=== PATIENT | female | born 1960 | race Caucasian/White ===

== ENCOUNTER → 2021-06-14 16:10 | Outpatient (CLI) | payer OTHER, SELFPAY ==
--- NOTE | 2021-06-14 16:45 | MRI_ITS ---
HISTORY: LUMBAR DISC MYELOPATHY. TECHNIQUE: Multiplanar and multisequence MR images of the lumbar spine. IV Contrast dosage and agent: None. # of images incl. paperwork: 120. COMPARISON: None. FINDINGS: VERTEBRAE: Vertebral body heights maintained. Degenerative bone marrow endplate changes at L4-5 and L5-S1. ALIGNMENT: No significant anterior or posterior subluxation. CONUS: Normal morphology and position at L1. SOFT TISSUES: No paraspinal fluid collection. INTERVERTEBRAL DISCS: Multilevel degenerative changes with posterior disc bulge osteophyte complexes and facet arthropathy. T12-L1, L1-2, L2-3, L3-4: No significant central canal stenosis or foraminal narrowing. L4-5: 9 x 12 mm left paracentral disc extrusion with superior migration extending into the left lateral recess and neural foramen resulting in left L4 and L5 nerve root impingement, mild-moderate central canal stenosis, and moderate left foraminal narrowing. L5-S1: Minimal narrowing of the thecal sac and mild left foraminal narrowing. MRI/Spine Lumbar (Routine) IMPRESSION: Left paracentral disc extrusion with superior migration at L4-5 resulting in left nerve root impingement with spinal canal and left foraminal narrowing. at 1646 Reported and signed by: Cassie Carroll MD Electronically Signed: Cassie Carroll MD at 16:45 EDT Tel , Service support ,
== END ==
PROVIDERS: Referring Provider Chiropractor; Visit Provider Chiropractor
DX: M51.06 Intervertebral disc disorders with myelopathy, lumbar region (principal)
CPT/HCPCS: 72148